=== PATIENT | male | born 1965 | race Caucasian/White ===

== ENCOUNTER 2017-05-06 13:55 | Outpatient (CLI) | payer BC, SELFPAY ==
[2017-05-06 14:12] VITALS: BMI 32.8
[2017-05-06 14:22] VITALS: BP 126/75; PULSE 95; RESP 20; TEMP 36.6; O2SAT 94
== END 2017-05-06 14:45 | disposition home or self-care (01) ==
LOC: INF 14:11
PROVIDERS: Family Provider Physician Assistant; PCP Family Medicine
DX: J45.909 Unspecified asthma, uncomplicated (principal)
CPT/HCPCS: 96372; J2357

== ENCOUNTER 2017-05-20 10:47 | Outpatient (CLI) | payer BC, SELFPAY ==
[2017-05-20 11:30] VITALS: BP 127/80; PULSE 89; RESP 18; TEMP 36.5; O2SAT 97
== END 2017-05-20 11:40 | disposition home or self-care (01) ==
LOC: INF 10:48
DX: J45.909 Unspecified asthma, uncomplicated (principal)
CPT/HCPCS: 96372; J2357

== ENCOUNTER 2017-06-03 10:46 | Outpatient (CLI) | payer BC, SELFPAY ==
[2017-06-03 11:15] VITALS: BP 113/74; PULSE 95; RESP 18; TEMP 36.6; O2SAT 98
== END 2017-06-03 11:30 | disposition home or self-care (01) ==
LOC: INF 10:47
PROVIDERS: Family Provider Physician Assistant
DX: J45.909 Unspecified asthma, uncomplicated (principal)
CPT/HCPCS: 96372; J2357

== ENCOUNTER 2017-06-27 13:10 | Outpatient (CLI) | payer BC, SELFPAY ==
[2017-06-27 13:55] VITALS: BP 120/73; PULSE 91; RESP 20; TEMP 36.7; O2SAT 95
== END 2017-06-27 14:11 | disposition home or self-care (01) ==
LOC: INF 13:23
PROVIDERS: Family Provider Physician Assistant
DX: J45.909 Unspecified asthma, uncomplicated (principal)
CPT/HCPCS: 96372; J2357

== ENCOUNTER 2017-07-09 12:40 | Outpatient (CLI) | payer BC, SELFPAY ==
[2017-07-09 13:40] VITALS: BP 120/72; PULSE 82; RESP 18; TEMP 36.8; O2SAT 97
== END 2017-07-09 14:00 | disposition home or self-care (01) ==
LOC: INF 12:45
PROVIDERS: Family Provider Physician Assistant; Visit Provider Allergy & Immunology
DX: J45.909 Unspecified asthma, uncomplicated (principal)
CPT/HCPCS: 96372; J2357

== ENCOUNTER 2017-07-22 10:55 | Outpatient (CLI) | payer BC, SELFPAY ==
[2017-07-22 11:25] VITALS: BP 119/68; PULSE 85; RESP 18; TEMP 36.5; O2SAT 96
== END 2017-07-22 11:40 | disposition home or self-care (01) ==
LOC: INF 11:13
PROVIDERS: Family Provider Physician Assistant
DX: J45.909 Unspecified asthma, uncomplicated (principal)
CPT/HCPCS: 96372; J2357

== ENCOUNTER 2017-08-05 11:03 | Outpatient (CLI) | payer BC, SELFPAY ==
[2017-08-05 11:35] VITALS: BP 124/71; PULSE 91; RESP 18; TEMP 37.1
[2017-08-05 11:40] VITALS: BP 124/71; PULSE 91; RESP 18; TEMP 37.1
== END 2017-08-05 11:40 | disposition home or self-care (01) ==
LOC: INF 11:03
PROVIDERS: Family Provider Physician Assistant
DX: J45.909 Unspecified asthma, uncomplicated (principal)
CPT/HCPCS: 96372; J2357

== ENCOUNTER 2017-08-19 10:50 | Outpatient (CLI) | payer BC, SELFPAY ==
[2017-08-19 11:19] VITALS: BP 130/69; PULSE 87; RESP 18; TEMP 36.7; O2SAT 97
== END 2017-08-19 11:40 | disposition home or self-care (01) ==
LOC: INF 10:51
PROVIDERS: Family Provider Physician Assistant; Visit Provider Allergy & Immunology
DX: J45.909 Unspecified asthma, uncomplicated (principal)
CPT/HCPCS: 96372; J2357

== ENCOUNTER 2017-09-16 11:39 | Outpatient (CLI) | payer BC, SELFPAY ==
[2017-09-16 12:05] VITALS: BP 133/88; PULSE 97; RESP 18; TEMP 36.7; O2SAT 97
--- NOTE | 2017-09-16 12:14 | PC.NURSE ---
Xolair 375mg given, 150mg SQ L arm, 150mg SQ R arm. Pt selam well
== END 2017-09-16 12:25 | disposition home or self-care (01) ==
LOC: INF 11:39
PROVIDERS: Family Provider Physician Assistant
DX: J45.909 Unspecified asthma, uncomplicated (principal)
CPT/HCPCS: 96372; J2357

== ENCOUNTER 2017-09-30 08:32 | Outpatient (CLI) | payer BC, SELFPAY ==
[2017-09-30 08:52] VITALS: BP 117/72; PULSE 91; RESP 18; TEMP 36.6; O2SAT 96
== END 2017-09-30 09:20 | disposition home or self-care (01) ==
LOC: INF 08:32
PROVIDERS: Family Provider Physician Assistant
DX: J45.909 Unspecified asthma, uncomplicated (principal)
CPT/HCPCS: 96372; J2357

== ENCOUNTER 2017-11-06 09:11 | Outpatient (CLI) | payer BC, SELFPAY ==
[2017-11-06 09:30] VITALS: BP 125/71; PULSE 76; RESP 20; TEMP 36.6; O2SAT 97
== END 2017-11-06 09:50 | disposition home or self-care (01) ==
LOC: INF 09:11
PROVIDERS: Family Provider Physician Assistant; PCP Family Medicine
DX: J45.909 Unspecified asthma, uncomplicated (principal)
CPT/HCPCS: 96372; J2357

== ENCOUNTER 2017-11-18 11:20 | Outpatient (CLI) | payer BC, SELFPAY ==
[2017-11-18 11:55] VITALS: BP 125/72; PULSE 71; RESP 18; TEMP 36.6; O2SAT 98
== END 2017-11-18 12:15 | disposition home or self-care (01) ==
LOC: INF 11:43
PROVIDERS: Family Provider Physician Assistant; PCP Family Medicine; Visit Provider Allergy & Immunology
DX: J45.909 Unspecified asthma, uncomplicated (principal)
CPT/HCPCS: 96372; J2357

== ENCOUNTER 2017-12-03 11:05 | Outpatient (CLI) | payer BC, SELFPAY ==
[2017-12-03 11:45] VITALS: BP 107/68; PULSE 77; RESP 18; TEMP 36.9; O2SAT 94
== END 2017-12-03 11:48 | disposition home or self-care (01) ==
LOC: INF 11:05
PROVIDERS: Family Provider Physician Assistant; PCP Family Medicine
DX: J45.909 Unspecified asthma, uncomplicated (principal)
CPT/HCPCS: 96372; J2357

== ENCOUNTER 2017-12-30 11:28 | Outpatient (CLI) | payer BC, SELFPAY ==
[2017-12-30 11:51] VITALS: BP 117/77; PULSE 85; RESP 18; TEMP 36.6; O2SAT 97
--- NOTE | 2017-12-30 11:55 | PC.NURSE ---
12/30/17 1154 Xolair 375mg SQ given as ordered, 150mg L arm, 150mg R arm to total 375mg
== END 2017-12-30 12:10 | disposition home or self-care (01) ==
LOC: INF 11:28
PROVIDERS: Family Provider Physician Assistant; PCP Family Medicine
DX: J45.909 Unspecified asthma, uncomplicated (principal)
CPT/HCPCS: 96372; J2357

== ENCOUNTER 2018-01-20 11:35 | Outpatient (CLI) | payer BC, SELFPAY ==
[2018-01-20 11:50] VITALS: BP 134/82; PULSE 91; RESP 18; TEMP 36.6; O2SAT 97
== END 2018-01-20 12:05 | disposition home or self-care (01) ==
LOC: INF 11:38
PROVIDERS: Family Provider Physician Assistant; PCP Family Medicine
DX: J45.909 Unspecified asthma, uncomplicated (principal)
CPT/HCPCS: 96372; J2357

== ENCOUNTER → 2018-02-21 14:54 | Outpatient (CLI) | payer BC, SELFPAY ==
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
== END ==
PROVIDERS: PCP Physician Assistant; Visit Provider Physician Assistant
DX: S62.92XA Unspecified fracture of left hand, initial encounter for closed fracture (principal)
CPT/HCPCS: 73130

== ENCOUNTER 2018-03-27 11:59 | Outpatient (CLI) | payer BC, SELFPAY ==
[2018-03-27 12:12] VITALS: BP 127/67; PULSE 98; RESP 18; TEMP 36.8; O2SAT 97
== END 2018-03-27 12:30 | disposition home or self-care (01) ==
LOC: INF 11:59
DX: J45.909 Unspecified asthma, uncomplicated (principal)
CPT/HCPCS: 96372; J2357

== ENCOUNTER 2018-04-24 14:17 | Outpatient (CLI) | payer BC, SELFPAY ==
[2018-04-24 14:27] VITALS: BP 119/73; PULSE 86; RESP 18; TEMP 36.5; O2SAT 98
== END 2018-04-24 14:40 | disposition home or self-care (01) ==
LOC: INF 14:18
DX: J45.909 Unspecified asthma, uncomplicated (principal)
CPT/HCPCS: 96372; J2357

== ENCOUNTER → 2018-08-05 10:20 | Outpatient (CLI) | payer BC, SELFPAY ==
--- NOTE | 2018-08-05 10:29 | XR_ITS ---
XR KUB HISTORY: ITS.REASON: KIDNEY STONES ORDERING PHYSICIAN: Kory Jamil MD PATIENT AGE: 52 years COMPARISON: None FINDINGS: The bowel gas pattern is unremarkable. No obvious obstruction.. A 4 mm stone is present in the mid pole region left kidney consistent with left nephrolithiasis. Previously there was a stone in the distal left ureter on the CT scan of 07/25/2018. There is a 3 to 4 mm calcific density in the left pelvic region which may represent a stone at the ureterovesical junction. This was not readily apparent on the manager of engineering exam of the CT scan and may represent the distal ureteral stone which has traveled to the UVJ. IMPRESSION: 1. Left nephrolithiasis. 2. Suspect a 4 mm left ureterovesical junction stone
== END ==
PROVIDERS: PCP Family Medicine; Visit Provider Urology
DX: N20.0 Calculus of kidney (principal)
CPT/HCPCS: 74018

== ENCOUNTER 2018-10-04 18:07 | Emergency (ER) | payer BC, SELFPAY ==
--- NOTE | 2018-10-04 18:14 | XR_ITS ---
XR hand RT min 3V HISTORY: Injury with pain at the first and second digits as well as between them. ITS.REASON: INJURY ORDERING PHYSICIAN: Sachi Andrade APRN PATIENT AGE: 52 years COMPARISON: No previous right hand But there is a left hand radiograph from 2017 TECHNIQUE: PA, Oblique and Lateral rightHand FINDINGS: No acute fracture or dislocation. Bones well mineralized. Slight narrowing and arthritic changes at IP joint of thumb with minor hypertrophic features here. . Borderline narrowing at DIP joint of fingers particularly long finger & fifth finger. The PIP joints appear intact at the fingers as do the MCP joints. .. No acute findings are seen at the first or second digit.. Minimal osseous density seen at the lateral aspect of the carpal-metacarpal joint.. Likely reflects old dystrophic calcification or possibly old injury. There is some minimal calcification at the triangle fibrocartilage with small cystic areas at the proximal lunate and triquetrum. Reflecting mild degenerative changes. The joint spaces are well-maintained at the carpals. . IMPRESSION...... No acute fracture or findings, with particular attention to the first and second digit. Mild early Degenerative changes at IP joint of thumb noted. Borderline narrowing possible very early degenerative changes at DIP joint of fingers.
[2018-10-04 18:15] VITALS: BP 108/65; PULSE 66; RESP 16; TEMP 36.6; O2SAT 99; BMI 29.5
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
--- NOTE | 2018-10-04 18:46 | PC.NURSE ---
WAITING FOR ER MD TO READ PT XRAY
[2018-10-04 19:03] VITALS: BP 108/65; PULSE 66; RESP 16; TEMP 36.6; O2SAT 99
== END 2018-10-04 19:04 | disposition home or self-care (01) ==
PROVIDERS: Emergency Provider Nurse Practitioner Family; PCP Family Medicine
DX: S63.601A Unspecified sprain of right thumb, initial encounter (principal); W31.89XA Contact with other specified machinery, initial encounter; Z88.6 Allergy status to analgesic agent
CPT/HCPCS: 73130; 99201

== ENCOUNTER → 2018-10-08 10:05 | Outpatient (CLI) | payer BC, SELFPAY ==
[2018-10-08 12:21] LABS: Alanine Aminotransferase 55 U/L (12-78); Albumin Level 3.6 gm/dL (3.4-5.0); Albumin/Globulin Ratio 1.1 (1.1-1.8); Alkaline Phosphatase 68 U/L (46-116); Anion Gap 14.3 mEq/L (5-15); Aspartate Amino Transferase 30 U/L (15-37); Bilirubin,Total 0.4 mg/dL (0.2-1.0); Blood Urea Nitrogen 25 mg/dL (7-18); Calcium 8.8 mg/dL (8.5-10.1); Carbon Dioxide 29 mmol/L (21.0-32.0); Chloride 102 mmol/L (98-107); Chol/HDL Ratio 4.7 (1-3.5); Cholesterol 245 mg/dL (140-200); Creatinine,Serum 1.18 mg/dL (0.70-1.30); Estimated Glomerular Filt Rate 65 ml/min (>60); GFR (African American) 79 ML/MIN (>60); Globulin 3.3 gm/dl (1.3-3.2); Glucose 87 mg/dL (74-106); HDL Cholesterol 52 mg/dL (27-67); LDL Cholesterol 172 mg/dL (0-130); Potassium 4.3 mmoL/L (3.5-5.1); Prostate Specific Ag Screen 0.2 ng/mL (0.0-4.0); Sodium 141 mmol/L (136-145); Total Protein,Serum 6.9 gm/dL (6.4-8.2); Triglycerides 103 mg/dL (30-200); VLDL Cholesterol 21 mg/dL (0-40)
[2018-10-08 13:27] LABS: Thyroid Stimulating Hormone 165.76 uIU/ml (0.358-3.740)
== END ==
PROVIDERS: Visit Provider Physician Assistant
DX: E03.9 Hypothyroidism, unspecified (principal); E78.2 Mixed hyperlipidemia; Z12.5 Encounter for screening for malignant neoplasm of prostate
CPT/HCPCS: 36415; 80053; 80061; 84443; G0103

== ENCOUNTER → 2018-12-09 07:04 | Outpatient (CLI) | payer BC, SELFPAY ==
[2018-12-09 09:21] LABS: Alanine Aminotransferase 22 U/L (12-78); Albumin Level 3.5 gm/dL (3.4-5.0); Albumin/Globulin Ratio 1.1 (1.1-1.8); Alkaline Phosphatase 64 U/L (46-116); Anion Gap 13.2 mEq/L (5-15); Aspartate Amino Transferase 12 U/L (15-37); Bilirubin,Total 0.5 mg/dL (0.2-1.0); Blood Urea Nitrogen 19 mg/dL (7-18); Calcium 8.8 mg/dL (8.5-10.1); Carbon Dioxide 26 mmol/L (21.0-32.0); Chloride 106 mmol/L (98-107); Chol/HDL Ratio 3.9 (1-3.5); Cholesterol 146 mg/dL (140-200); Creatinine,Serum 0.89 mg/dL (0.70-1.30); Estimated Glomerular Filt Rate 90 ml/min (>60); GFR (African American) 109 ML/MIN (>60); Globulin 3.1 gm/dl (1.3-3.2); Glucose 96 mg/dL (74-106); HDL Cholesterol 37 mg/dL (27-67); LDL Cholesterol 91 mg/dL (0-130); Potassium 4.2 mmoL/L (3.5-5.1); Sodium 141 mmol/L (136-145); Thyroid Stimulating Hormone 0.39 uIU/ml (0.358-3.740); Total Protein,Serum 6.6 gm/dL (6.4-8.2); Triglycerides 90 mg/dL (30-200); VLDL Cholesterol 18 mg/dL (0-40)
== END ==
PROVIDERS: Visit Provider Nurse Practitioner Family
DX: E03.9 Hypothyroidism, unspecified (principal); E78.2 Mixed hyperlipidemia
CPT/HCPCS: 36415; 80053; 80061; 84443

== ENCOUNTER → 2019-12-22 13:14 | Outpatient (CLI) | payer BC, SELFPAY ==
--- NOTE | 2019-12-22 13:25 | XR_ITS ---
PROCEDURE: XR CHEST PORTABLE CLINICAL HISTORY: COVID OUT PATIENT COMPARISON: CR CXR CHEST(2 VIEWS-NOT PORTABLE) from 02/13/2017 CR CXR2V XR chest 2V from 04/24/2018 FINDINGS: The cardiomediastinal silhouette and pulmonary vascularity are within normal limits. The lungs are clear without infiltrates, suspicious nodules, or pleural effusions. No acute bony abnormalities. IMPRESSION: No acute findings. Dictated by: Ramon Ambrocio MD 12/22/2019 15:23 Ramon Ambrocio MD in [place] 12/22/2019 15:23
[2019-12-22 14:54] LABS: Basophils # 0.1 K/mm3 (0-0.2); Basophils % 0.3 % (0.1-2.0); Eosinophils % 0.2 % (0.1-12.0); Hematocrit 42.3 % (42.0-52.0); Hemoglobin 14.4 g/dL (14.1-18.0); Lymphocytes # 2.7 K/mm3 (0.7-4.5); Lymphocytes % 16.9 % (10-50); Mean Corpuscular HGB Conc 34.1 g/dL (31.8-35.4); Mean Corpuscular Hemoglobin 31.3 pg (27.0-31.2); Mean Corpuscular Volume 91.8 fl (80-94); Mean Platelet Volume 8.6 fl (7.4-10.4); Monocytes # 1.1 K/mm3 (0.1-1.0); Monocytes % 6.6 % (1.7-9.3); Neutrophils # 12.1 K/mm3 (1.8-7.8); Platelet Count 288 K/mm3 (142-424); White Blood Count 15.9 K/mm3 (4.8-10.8)
[2019-12-22 14:57] LABS: MANUAL DIFFERENTIAL MANUAL DIFFERENTIAL (MANUAL DIFF)
[2019-12-22 15:25] LABS: Lymphocytes % 23 % (10-50); Monocytes % 8 % (2-9); Neutrophils % 69 % (42-76); Platelet Estimate Normal; RBC Morphology Normal; Total Cells Counted 100
[2019-12-24 13:44] LABS: Covid-19 Nasal PCR Sendout Lex NOT DETECTED
== END ==
PROVIDERS: PCP Family Medicine; Visit Provider Family Medicine
DX: Z20.828 Contact with and (suspected) exposure to other viral communicable diseases (principal)
CPT/HCPCS: 36415; 71045; 85007; 85025; U0004

== ENCOUNTER → 2021-03-16 14:44 | Outpatient (CLI) | payer BC, SELFPAY | PROVIDERS: PCP Family Medicine; Visit Provider Physician Assistant | DX: U07.1 COVID-19 (principal) | CPT/HCPCS: C9803; U0003; U0005 ==

== ENCOUNTER 2021-03-21 07:50 | Outpatient (CLI) | payer BC, SELFPAY ==
[2021-03-21] VITALS (7 sets, daily range): BP systolic 98–124; BP diastolic 73–81; PULSE 76–94; RESP 16–20; TEMP 36.8–37; O2SAT 96–100
== END 2021-03-21 10:06 | disposition home or self-care (01) ==
PROVIDERS: PCP Family Medicine; Visit Provider Family Medicine
DX: U07.1 COVID-19 (principal); Z23 Encounter for immunization
CPT/HCPCS: 96365

== ENCOUNTER → 2021-07-09 09:21 | Outpatient (CLI) | payer BC, SELFPAY ==
[2021-07-09 10:13] LABS: Basophils # 0.2 K/mm3 (0-0.2); Basophils % 2.3 % (0.1-2.0); Eosinophils # 0.3 K/mm3 (0.0-0.4); Eosinophils % 3.5 % (0.1-12.0); Hematocrit 49.9 % (42.0-52.0); Hemoglobin 15.6 g/dL (14.1-18.0); Lymphocytes # 2.5 K/mm3 (0.7-4.5); Mean Corpuscular HGB Conc 31.4 g/dL (31.8-35.4); Mean Corpuscular Hemoglobin 30.4 pg (27.0-31.2); Mean Corpuscular Volume 97.1 fl (80-94); Monocytes # 0.8 K/mm3 (0.1-1.0); Monocytes % 10.3 % (1.7-9.3); Neutrophils # 3.8 K/mm3 (1.8-7.8); Platelet Count 314 K/mm3 (142-424); Red Blood Count 5.14 M/mm3 (4.60-6.20); Red Cell Distribution Width 13.9 % (11.5-17.5); White Blood Count 7.5 K/mm3 (4.8-10.8)
[2021-07-09 11:01] LABS: Erythrocyte Sedimentation Rate 14 mm/hr (0-20)
[2021-07-09 11:53] LABS: Chloride 108 mmol/L (98-107); Potassium 3.8 mmoL/L (3.5-5.1); Sodium 138 mmol/L (136-145)
[2021-07-09 11:56] LABS: Alanine Aminotransferase 24 U/L (12-78); Albumin Level 3.9 g/dl (3.5-5.0); Albumin/Globulin Ratio 1.2 (1.1-1.8); Alkaline Phosphatase 65 U/L (38-126); Anion Gap 8.8 mEq/L (5-15); Aspartate Amino Transferase 36 U/L (17-59); Bilirubin,Total 0.4 mg/dl (0.2-1.3); Blood Urea Nitrogen 19 mg/dl (9-20); Calcium 8.2 mg/dl (8.4-10.2); Carbon Dioxide 25 mmol/L (22.0-30.0); Cholesterol 179 mg/dl (140-200); Estimated Glomerular Filt Rate 88 ml/min (>60); GFR (African American) 107 ML/MIN (>60); Globulin 3.3 g/dL (1.3-3.2); Glucose 92 mg/dl (74-100); Total Protein,Serum 7.2 g/dl (6.3-8.2); Triglycerides 100 mg/dl (30-150); VLDL Cholesterol 20 mg/dL (0-40)
[2021-07-09 11:57] LABS: Chol/HDL Ratio 4.6 (1-3.5); HDL Cholesterol 39 mg/dl (40-60)
[2021-07-09 12:08] LABS: Direct LDL Cholesterol 123.27 mg/dL (100-129)
[2021-07-09 12:14] LABS: T4 (Thyroxine) 10.6 ug/dl (5.53-11.0)
[2021-07-09 12:28] LABS: Prostate Specific Ag Screen 0.5 ng/ml (0.0-4.0); Thyroid Stimulating Hormone 1.48 uIU/mL (0.465-4.68)
[2021-07-09 12:49] LABS: Uric Acid 5.6 mg/dl (3.5-8.5)
[2021-07-10 15:21] LABS: Antinuclear Antibodies, IFA Negative (.)
[2021-07-10 17:20] LABS: RA Latex Turbid. 15.4 IU/mL (<14.0)
== END ==
PROVIDERS: PCP Family Medicine; Visit Provider Family Medicine
DX: E03.9 Hypothyroidism, unspecified (principal); E78.5 Hyperlipidemia, unspecified; M25.50 Pain in unspecified joint; Z12.5 Encounter for screening for malignant neoplasm of prostate
CPT/HCPCS: 36415; 80053; 80061; 84436; 84443; 84550; 85025; 85651; 86038; 86431; G0103

== ENCOUNTER → 2021-07-12 15:25 | Outpatient (CLI) | payer BC, SELFPAY ==
[2021-07-12 16:18] LABS: Erythrocyte Sedimentation Rate 17 mm/hr (0-20)
== END ==
PROVIDERS: PCP Family Medicine; Visit Provider Family Medicine
DX: E03.9 Hypothyroidism, unspecified (principal); E78.5 Hyperlipidemia, unspecified; M25.50 Pain in unspecified joint; Z12.5 Encounter for screening for malignant neoplasm of prostate
CPT/HCPCS: 85651

== ENCOUNTER → 2022-03-12 19:28 | Outpatient (CLI) | payer BC, SELFPAY ==
[2022-03-12 19:58] LABS: Coronavirus 19, PCR Not Detected (NotDetected); Influenza B, PCR Not Detected (NotDetected)
[2022-03-12 20:04] LABS: Basophils # 0.1 K/mm3 (0-0.2); Basophils % 1.1 % (0.1-2.0); Eosinophils # 0.2 K/mm3 (0.0-0.4); Eosinophils % 2.4 % (0.1-12.0); Hematocrit 46.2 % (42.0-52.0); Hemoglobin 14.8 g/dL (14.1-18.0); Lymphocytes # 1.8 K/mm3 (0.7-4.5); Lymphocytes % 25.8 % (10-50); Mean Corpuscular Hemoglobin 30.6 pg (27.0-31.2); Mean Corpuscular Volume 95.8 fl (80-94); Mean Platelet Volume 8.8 fl (7.4-10.4); Monocytes # 0.7 K/mm3 (0.1-1.0); Monocytes % 10.6 % (1.7-9.3); Neutrophils # 4.2 K/mm3 (1.8-7.8); Platelet Count 293 K/mm3 (142-424); Red Blood Count 4.82 M/mm3 (4.60-6.20); Red Cell Distribution Width 13.6 % (11.5-17.5)
[2022-03-12 22:49] LABS: Influenza A, PCR Detected (NotDetected)
== END ==
PROVIDERS: PCP Family Medicine; Visit Provider Family Medicine
DX: Z20.822 Contact with and (suspected) exposure to COVID-19 (principal); J10.01 Influenza due to other identified influenza virus with the same other identified influenza virus pneumonia
CPT/HCPCS: 36415; 85025; C9803; U0003; U0005

== ENCOUNTER 2023-02-14 10:30 | Emergency (ER) | payer BC, SELFPAY ==
[2023-02-14] VITALS (11 sets, daily range): BP systolic 111–147; BP diastolic 72–102; PULSE 74–107; RESP 16–19; TEMP 36.7–36.8; O2SAT 95–100; BMI 27.5
--- NOTE | 2023-02-14 10:43 | CT_ITS ---
FINAL REPORT CLINICAL HISTORY: history of stones, L flank pain to groin COMPARISON: 07/25/2018 FINDINGS: Axial CT images of the abdomen and pelvis were obtained without intravenous contrast. Coronal reformatted images were also obtained.This study was performed with techniques to keep radiation doses as low as reasonably achievable (ALARA). Individualized dose reduction techniques using automated exposure control or adjustment of mA and/or kV according to the patient''s size were employed. Abdomen:The lung bases are clear. There are small bilateral nonobstructing renal stones measuring up to 3 mm on the left. There are multiple small bilateral renal masses which can not be accurately characterize on this noncontrast study. These were present on the prior study and likely represent small cysts. The liver, spleen and pancreas have an unremarkable, unenhanced appearance. No mass or adenopathy is seen. No inflammatory process is identified. There is a small umbilical hernia containing fat. Pelvis: Images of the pelvis reveal no evidence of ureteral dilation or ureteral stone. There are several sigmoid diverticula. There is a small amount of fluid in the lower pelvis which may be reactive. There are bilateral inguinal hernias containing fat. IMPRESSION: Bilateral nonobstructing renal stones up to 3 mm. Multiple small bilateral renal masses likely represent small cysts. Small amount of fluid in lower pelvis may be reactive. Reviewed, Interpreted and Dictated by Wagner Mercado III, MD Transcribed by Pattie Franks Authenticated and [facility]
--- NOTE | 2023-02-14 11:03 | PC.NURSE ---
provided pt with urinal to provide urine sample.
[2023-02-14 11:05] LABS: Basophils # 0.1 K/mm3 (0-0.2); Basophils % 0.4 % (0.1-2.0); Eosinophils # 0.2 K/mm3 (0.0-0.4); Eosinophils % 2.1 % (0.1-12.0); Hematocrit 45.4 % (42.0-52.0); Hemoglobin 15.5 g/dL (14.1-18.0); Lymphocytes % 19.2 % (10-50); Mean Corpuscular HGB Conc 34.1 g/dL (31.8-35.4); Mean Corpuscular Hemoglobin 32.5 pg (27.0-31.2); Mean Corpuscular Volume 95.5 fl (80-94); Mean Platelet Volume 8.7 fl (7.4-10.4); Monocytes # 0.4 K/mm3 (0.1-1.0); Monocytes % 3.9 % (1.7-9.3); Neutrophils # 7.6 K/mm3 (1.8-7.8); Neutrophils % 74.4 % (37.0-80.0); Platelet Count 256 K/mm3 (142-424); Red Blood Count 4.75 M/mm3 (4.60-6.20); Red Cell Distribution Width 13.2 % (11.5-17.5); White Blood Count 10.2 K/mm3 (4.8-10.8)
--- NOTE | 2023-02-14 11:07 | PC.NURSE ---
urine sample sent to lab
[2023-02-14 11:09] LABS: Alanine Aminotransferase 27 U/L (12-78); Albumin Level 4.4 g/dl (3.5-5.0); Albumin/Globulin Ratio 1.1 (1.1-1.8); Alkaline Phosphatase 50 U/L (38-126); Anion Gap 12.4 mEq/L (5-15); Aspartate Amino Transferase 34 U/L (17-59); Bilirubin,Total 0.4 mg/dl (0.2-1.3); Blood Urea Nitrogen 15 mg/dl (9-20); Calcium 9.5 mg/dl (8.4-10.2); Carbon Dioxide 29 mmol/L (22.0-30.0); Chloride 100 mmol/L (98-107); Creatinine Clearance Estimated 109 mL/min (50-200); Estimated Glomerular Filt Rate 78 ml/min (>60); GFR (African American) 94 ML/MIN (>60); Globulin 3.9 g/dL (1.3-3.2); Glucose 150 mg/dl (74-100); Potassium 4.4 mmoL/L (3.5-5.1); Sodium 137 mmol/L (136-145); Total Protein,Serum 8.3 g/dl (6.3-8.2)
[2023-02-14 11:10] LABS: Microscopic, Urine URINE MICROSCOPIC (MICROSCOPIC)
[2023-02-14 11:15] LABS: Appearance,Urine CLEAR (Clear); Bilirubin,Urine Negative (Negative); Blood, Urine Negative (Negative); Color,Urine YELLOW (Yellow); Glucose,Urine (UA) Negative (Negative); Ketones,Urine Negative (Negative); Leukocyte Esterase,Urine Negative (Negative); Nitrate,Urine Negative (Negative); Protein,Urine Negative (Negative); Urobilinogen,Urine 0.2 EU/dl (0.2)
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
[2023-02-14 12:10] LABS: Bacteria,Urine Trace /lpf; Squamous Epithelial Cell,Urine Occasional #/hpf (0-5); WBC,Urine Occasional #/hpf (0-3)
--- NOTE | 2023-02-14 12:55 | PC.NURSE ---
Called radiology regarding ct read. They are sending prelim read down now
== END 2023-02-14 13:11 | disposition home or self-care (01) ==
PROVIDERS: Emergency Provider Emergency Medicine; PCP Family Medicine
DX: M54.59 Other low back pain (principal); N20.0 Calculus of kidney; N28.89 Other specified disorders of kidney and ureter; F17.210 Nicotine dependence, cigarettes, uncomplicated; J44.9 Chronic obstructive pulmonary disease, unspecified; I10 Essential (primary) hypertension; E78.5 Hyperlipidemia, unspecified
CPT/HCPCS: 74176; 80053; 81001; 85025; 96374; 96375; 99284

== ENCOUNTER → 2023-02-26 10:48 | Outpatient (CLI) | payer BC, SELFPAY ==
--- NOTE | 2023-02-26 10:54 | US_ITS ---
FINAL REPORT TECHNIQUE: Ultrasound images of the kidneys and bladder were obtained. CLINICAL HISTORY: RENAL MASS COMPARISON: CT of the abdomen without contrast dated 02/14/2023 FINDINGS: The right kidney measures 10.8 cm in length. It is normal in echogenicity. There is no hydronephrosis. There is an exophytic hypoechoic focus in the right kidney, that measures 1.5 cm in diameter, and is likely a benign cyst. The left kidney measures 11.3 cm in length. It is normal in echogenicity. There is no hydronephrosis. There are several left anechoic foci measuring up to 2 cm in size, likely benign cysts. There is also a left renal nonobstructing stone, measuring up to 5 mm in size. IMPRESSION: Bilateral renal anechoic foci most compatible in appearance with renal cysts. Left sided nonobstructing renal stones measuring up to 5 mm in size. Reviewed, Interpreted and Dictated by Suman Brown MD Transcribed by Kathryn Sanchez Authenticated and [facility]
== END ==
LOC: RAD 10:49
PROVIDERS: PCP Family Medicine; Visit Provider Physician Assistant
DX: N28.89 Other specified disorders of kidney and ureter (principal)
CPT/HCPCS: 76770

== ENCOUNTER 2023-11-09 18:27 | Emergency (ER) | payer BC, SELFPAY ==
[2023-11-09 18:28] VITALS: BP 147/100; PULSE 94; RESP 20; TEMP 36.8; O2SAT 96; BMI 31.8
--- NOTE | 2023-11-09 18:33 | XR_ITS ---
PROCEDURE INFORMATION: Exam: XR Chest Exam date and time: 11/09/2023 6:37 PM Age: 57 years old Clinical indication: Shortness of breath; Additional info: Shortness of breath, HX copd TECHNIQUE: Imaging protocol: Radiologic exam of the chest. Views: 1 view. COMPARISON: CR XR CHEST PORTABLE 12/22/2019 1:40 PM FINDINGS: Lungs: Unremarkable. No consolidation. Pleural spaces: Unremarkable. No pleural effusion. No pneumothorax. Heart/Mediastinum: Unremarkable. No cardiomegaly. Bones/joints: Unremarkable. IMPRESSION: No acute findings.
--- NOTE | 2023-11-09 18:33 | ECG_ITS ---
APPROVED REPORT Exam: Resting ECG HR:86 bpm ECG Measurements Heart Rate 86 AXES [place] 140 P 54 QRSd 89 QRS 71 QT 353 T 34 QTc 397 Conclusion SINUS RHYTHM NORMAL ECG Electronically signed by : JOSIAH PENA, 11/09/2023 18:47:53
[2023-11-09] MEDS: METHYLPREDNISOLONE SOD SUCC 125MG VIAL 125 MG IV (18:39)
[2023-11-09] MEDS: IPRATROPIUM/ALBUTEROL 3 ML NEB IH (18:39)
--- NOTE | 2023-11-09 18:43 | PC.NURSE ---
XR AT BEDSIDE
[2023-11-09 18:45] LABS: Lactate Venous 1.3 mmol/L (0.4-2.0); VBG Base Excess -1.3 mmol/L (-2.4-2.3); VBG HCO3 23.8 mmol/L (23-30); VBG Oxygen Saturation 90.4 % (50-70); VBG PH 7.38 mmol/L (7.31-7.41); VBG PO2 56.4 mmol/L (28-40); VBG Total CO2 25.1 mmol/L (23-27)
[2023-11-09 18:47] LABS: Albumin Level 3.9 g/dl (3.5-5.0); Chloride 109 mmol/L (98-107); Sodium 139 mmol/L (136-145)
[2023-11-09 18:50] LABS: Alanine Aminotransferase 27 U/L (12-78); Albumin/Globulin Ratio 1.3 (1.1-1.8); Alkaline Phosphatase 52 U/L (38-126); Aspartate Amino Transferase 26 U/L (17-59); Bilirubin,Total 0.2 mg/dl (0.2-1.3); Blood Urea Nitrogen 21 mg/dl (9-20); Calcium 9.1 mg/dl (8.4-10.2); Carbon Dioxide 28 mmol/L (22.0-30.0); Creatinine Clearance Estimated 126 mL/min (50-200); Estimated Glomerular Filt Rate 78 ml/min (>60); GFR (African American) 94 ML/MIN (>60); Globulin 2.9 g/dL (1.3-3.2); Glucose 122 mg/dl (74-100); Total Protein,Serum 6.8 g/dl (6.3-8.2)
[2023-11-09 18:56] LABS: Basophils # 0.1 K/mm3 (0-0.2); Basophils % 0.8 % (0.1-2.0); Eosinophils # 0.3 K/mm3 (0.0-0.4); Eosinophils % 2.6 % (0.1-12.0); Hematocrit 43.7 % (42.0-52.0); Hemoglobin 14.1 g/dL (14.1-18.0); Lymphocytes # 3.3 K/mm3 (0.7-4.5); Lymphocytes % 28.4 % (10-50); Mean Corpuscular HGB Conc 32.3 g/dL (31.8-35.4); Mean Corpuscular Hemoglobin 31.8 pg (27.0-31.2); Mean Corpuscular Volume 98.2 fl (80-94); Mean Platelet Volume 8.9 fl (7.4-10.4); Monocytes # 0.8 K/mm3 (0.1-1.0); Monocytes % 6.6 % (1.7-9.3); Neutrophils # 7.2 K/mm3 (1.8-7.8); Neutrophils % 61.7 % (37.0-80.0); Platelet Count 254 K/mm3 (142-424); Red Blood Count 4.46 M/mm3 (4.60-6.20); Red Cell Distribution Width 14.1 % (11.5-17.5); White Blood Count 11.6 K/mm3 (4.8-10.8)
[2023-11-09 19:00] VITALS: BP 120/72; PULSE 87; O2SAT 97
[2023-11-09 19:06] LABS: Troponin I < 0.01 ng/ml (0.00-0.034)
--- NOTE | 2023-11-09 19:06 | [facility].EDCP ---
Discharge Plan Disposition Patient Disposition: Home, Self-Care Condition: Good Prescriptions Prescriptions: New methylprednisolone [Medrol (Raul)] 4 mg tablets,dose pack 4 mg PO DAILY Qty: 21 0RF No Action albuterol sulfate 2.5 MG/NEB solution for nebulization 2.5 mg IH QIDP PRN (Reason: SOB/WHEEZING) prednisone 5 MG tablet 5 mg PO DAILY simvastatin 40 MG tablet 40 mg PO HS levothyroxine 150 MCG tablet 150 mcg PO DAILY montelukast 10 MG tablet 10 mg PO HS fluticasone propion-salmeterol 28 PUFFS blister with device 1 inh IH BID levocetirizine 5 MG tablet 5 mg PO DAILY azelastine 205.5 MCG/0.137 ML spray,non-aerosol 205.5 mcg NS DAILYP PRN (Reason: NASAL ALLERGIES) prednisone 20 mg tablet 40 mg PO BID 5 Days Qty: 20 0RF oxycodone-acetaminophen 1 EACH tablet 1 tab PO Q6HP PRN (Reason: Moderate To Severe Pain) Qty: 10 0RF tamsulosin 0.4 MG capsule 0.4 mg PO HS Qty: 10 0RF ondansetron 4 MG tablet,disintegrating 4 mg PO TIDP PRN (Reason: Nausea And Vomiting) Qty: 10 0RF Referrals Follow up/Referrals: Tien Turk MD [Primary Care Provider] - See instructions Activity Restrictions/Add. Instructions Additional Instructions/Restrictions: Take Medrol Dosepak as prescribed and follow-up closely with your primary care provider for continued management. Return for any new or worsening symptoms. Clinical Impressions Clinical Impression: COPD exacerbation Instructions Patient Instructions: DI for Chronic Obstructive Pulmonary Disease Print Language Print Language: Scottish Discharge ED Provider: Jewell Salter General Chief Complaint: Shortness of Breath/Dyspnea Stated Complaint: SOA Time Seen by Provider: 11/09/23 18:29 Mode of Arrival: Ambulatory Source of Information: Patient Limitations: No Limitations Description of Symptoms (Recalled from ER Triage Doc. by RN): pt has been SOA for a week since being exposed to chemicals in a trailer while moving a fridge, he says he thinks it was [place] and ever since then it has made his COPD and asthma flare up. he has tried at [facility] with no success denies any fever History of Present Illness HPI narrative: Patient is a 57-year-old male with past medical history COPD and asthma presenting with shortness of breath over the past week. He states that he was moving a fridge and the back exploded a week ago and he believes it was ammonia, since that time he has had some worse shortness of breath. He initially had some improvement with his home nebulizers but seem to worsen over the past couple of days prompting presentation. He does also note a pressure-like pain over his left chest intermittently over the past 2 days. Denies any fevers or chills, nausea or vomiting. Denies any known cardiac history. Related Data Home Medications ?Medication ?Instructions ?Recorded ?Confirmed albuterol sulfate 2.5 mg/3 mL 2.5 mg IH QIDP PRN SOB/WHEEZING 05/06/17 02/14/23 (0.083 %) solution for nebulization azelastine 205.5 mcg (0.15 %) 205.5 mcg NS DAILYP PRN NASAL 05/06/17 02/14/23 nasal spray ALLERGIES fluticasone 100 mcg-salmeterol 50 1 inh IH BID Asthma 05/06/17 02/14/23 mcg/dose blistr powdr for inhalation levocetirizine 5 mg tablet 5 mg PO DAILY ALLERGIES 05/06/17 02/14/23 levothyroxine 150 mcg tablet 150 mcg PO DAILY THYROID 05/06/17 02/14/23 montelukast 10 mg tablet 10 mg PO HS Asthma 05/06/17 02/14/23 prednisone 5 mg tablet 5 mg PO DAILY Breathing problems 05/06/17 02/14/23 simvastatin 40 mg tablet 40 mg PO HS High cholesterol 05/06/17 02/14/23 Previous Rx's ?Medication ?Instructions ?Recorded ondansetron 4 mg disintegrating 4 mg PO TIDP PRN Nausea And 07/25/18 tablet Vomiting ##10 oxycodone-acetaminophen 5 mg-325 1 tab PO Q6HP PRN Moderate To 07/25/18 mg tablet Severe Pain #10 tabs tamsulosin 0.4 mg capsule 0.4 mg PO HS ##10 07/25/18 prednisone 20 mg tablet 40 mg (2 x 20 mg) PO BID 5 days 02/14/23 #20 tabs methylprednisolone 4 mg tablets in 4 mg PO DAILY #21 tabs 11/09/23 a dose pack (Medrol (Raul)) Allergies Allergy/AdvReac Type Severity Reaction Status Date / Time aspirin Allergy Unknown CONTINUOUS Verified 02/14/23 11:12 SINUS DRAINAGE NSAIDS (Non-Steroidal Allergy Unknown Verified 02/14/23 11:12 Anti-Inflamma [NSAIDS (NON-STEROIDAL ANTI-INFLAMMA] [facility] Disclaimer: The information contained in this section may have been updated after the patient was seen, as this information can be updated by other users. Social History Smoking Status: Current every day smoker tobacco type: cigarettes packs per day: 1 alcohol intake: never substance use type: denies use current occupational status: other Travel in the last 8 weeks: None housing: house ROS Obtained: Yes All systems reviewed & no additional complaints except as documented Physical Exam General General appearance: alert and in no apparent distress Chest Chest inspection: Present normal inspection and symmetric chest wall rise Respiratory Respiratory exam: Present normal lung sounds bilaterally and other (Some diffuse scattered wheezes); Absent respiratory distress Cardiovascular Cardiovascular exam: Present regular rate and normal rhythm Abdominal Exam Abdominal exam: Present soft; Absent tenderness Extremities Exam Extremities exam: Present normal inspection Neurological Exam Neurological exam: Present alert and oriented X3 Skin Skin exam: Present warm and dry HEART Score HEART Score HEART Score assessment performed?: Yes History (anamnesis): Slightly suspicious ECG: Normal Age: 45-65 years Risk factors: 1-2 risk factors Troponin: </= normal limit HEART Score: 2 Critical Care Critical Care Time Critical Care Time: No Medical Decision Making Medical Records Medical records reviewed: Yes I reviewed the patient's medical records. [facility] Inquiry Pt receiving controlled substance: No Vital Signs Vital Signs: 11/09/23 18:28 11/09/23 19:00 Temperature 98.2 F Temperature Source Oral Pulse Rate 87 Pulse Rate [Right Brachial] 94 H Respiratory Rate 20 Blood Pressure 120/72 Blood Pressure [Right Arm] 147/100 H Blood Pressure Mean [Right Arm] 115 02 Sat by Pulse Oximetry 96 97 Oxygen Delivery Method Room Air Lab Data Lab results reviewed: Yes I reviewed the patient's lab results. Labs: Lab Results 11/09/23 18:33: VBG pH 7.38, VBG pCO2 41.0, VBG pO2 56.4 H, VBG HCO3 23.8, VBG Total CO2 25.1, VBG O2 Saturation 90.4 H, VBG Base Excess -1.3, VBG Lactic Acid 1.3 11/09/23 18:34: WBC 11.6 H, RBC 4.46 L, Hgb 14.1, Hct 43.7, MCV 98.2 H, MCH 31.8 H, MCHC 32.3, RDW 14.1, Plt Count 254, MPV 8.9, Neut % (Auto) 61.7, Lymph % (Auto) 28.4, Cochran % (Auto) 6.6, Eos % (Auto) 2.6, Baso % (Auto) 0.8, Neut # (Auto) 7.2, Lymph # (Auto) 3.3, Cochran # (Auto) 0.8, Eos # (Auto) 0.3, Baso # (Auto) 0.1, Sodium 139, Potassium 4.0, Chloride 109 H, Carbon Dioxide 28, Anion Gap 6.0, BUN 21 H, Creatinine 1.00, Estimated Creat Clear 126, Estimated GFR 78, Est GFR ( Amer) 94, Glucose 122 H, Calcium 9.1, Total Bilirubin 0.2, AST 26, ALT 27, Alkaline Phosphatase 52, Troponin I < 0.01, Total Protein 6.8, Albumin 3.9, Globulin 2.9, Albumin/Globulin Ratio 1.3 11/09/23 18:34 11/09/23 18:34 Response Orders (Tests/Meds): ED MEDICATIONS Generic Name Dose Route Start Last Admin Trade Name Freq PRN Reason Stop Dose Admin Sodium Chloride 10 ml 11/09/23 18:33 Sodium Chloride 0.9% 10ml Flush Syringe IV 12/09/23 18:32 NEEDED PRN Maintain IV Site Discontinued Medications Generic Name Dose Route Start Last Admin Trade Name Freq PRN Reason Stop Dose Admin Albuterol/Ipratropium 3 ml 11/09/23 18:33 11/09/23 18:39 Ipratropium/Albuterol 3 Ml Neb IH 11/09/23 18:34 3 ml ONCE ONE Administration Methylprednisolone Sodium Succinate 125 mg 11/09/23 18:33 11/09/23 18:39 Methylprednisolone Sod Succ 125mg Vial IV 11/09/23 18:34 125 mg ONCE ONE Administration ORDERS Category Date Time Status XR chest portable Stat Exams 07/27/24 18:33 Completed Complete Blood Count Auto Diff Stat Lab 11/09/23 18:34 Completed Comprehensive Metabolic Panel Stat Lab 11/09/23 18:34 Completed Troponin I Stat Lab 11/09/23 18:34 Completed Venous Blood Gas Stat RT 11/09/23 18:33 Completed ECG Data Tracing #1: Attestation: I reviewed this ECG and interpreted as documented below: ECG Narrative: EKG showing normal sinus rhythm at a rate of 86, normal axis, normal intervals, no QT prolongation ECG initial impression date: 11/09/23 ECG initial impression time: 18:37 ECG normal with no acute: arrhythmias, ischemia, conduction abnormalities, chamber hypertrophy Normal Sinus Rhythm: Yes MDM Narrative Medical Decision Narrative: Patient 57-year-old female with past medical history COPD and asthma presenting with shortness of breath over 1 week. There was an inciting event of a possible refrigerator exploding 1 week ago inciting the shortness of breath, initially with improvement to home nebulizers now refractory with some left-sided chest pain. He has had the chest pain for the past 2 days and has no known cardiac issues. Exam is overall unremarkable except for some diffuse scattered wheezing. His EKG on arrival is without acute ischemia or infarction showing normal sinus rhythm at a rate of 86. Will obtain labs for further evaluation and give DuoNeb and Solu-Medrol. CBC and CMP nonactionable, troponin negative, chest x-ray showing no acute process, VBG without acute derangement. Discussed patient's reassuring blood work and he does feel improvement after DuoNeb. It is possible that he was thrown into a COPD exacerbation after exposure will treat with course of Solu-Medrol and to follow-up with his primary care provider. Patient agreed with plan and discharged in stable condition.
[2023-11-09 19:59] VITALS: BP 125/76; PULSE 82; RESP 14; TEMP 36.8; O2SAT 100
== END 2023-11-09 20:02 | disposition home or self-care (01) ==
PROVIDERS: Emergency Provider Emergency Medicine; PCP Family Medicine
DX: J44.1 Chronic obstructive pulmonary disease with (acute) exacerbation (principal); F17.210 Nicotine dependence, cigarettes, uncomplicated; R06.02 Shortness of breath; R06.2 Wheezing
CPT/HCPCS: 71045; 80053; 82803; 84484; 85025; 93005; 96374; 99284; J2919; J7620